=== PATIENT | male | born 1970 | race Caucasian/White ===

== ENCOUNTER 2022-06-08 13:31 | Emergency (ER) | payer OTHER, SELFPAY ==
[2022-06-08 13:32] VITALS: BP 145/95; PULSE 83; RESP 16; TEMP 36.1; O2SAT 95; BMI 27.7
[2022-06-08 13:39] VITALS: O2SAT 98
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
[2022-06-08 15:11] VITALS: BP 161/100; PULSE 84; RESP 16; O2SAT 97
== END 2022-06-08 15:11 | disposition home or self-care (01) ==
PROVIDERS: Emergency Provider Emergency Medicine; Visit Provider Emergency Medicine
DX: S43.002A Unspecified subluxation of left shoulder joint, initial encounter (principal); S00.91XA Abrasion of unspecified part of head, initial encounter; V49.60XA Unspecified car occupant injured in collision with unspecified motor vehicles in traffic accident, initial encounter
CPT/HCPCS: 70450; 72125; 73030; 99285